=== PATIENT | female | born 1990 | race Hispanic/Latino ===

== ENCOUNTER 2016-05-31 01:53 | Emergency (ER) | payer OTHER ==
[~2016-05-31] VITALS: Ht 160 cm; Wt 96.8 kg
[~2016-05-31 01:53] MED LIST: AMOXICILLIN500 MG OR; AMOXICILLIN500 MG PO; AUGMENTIN875TAB PO; BACTRIM DS1 TAB PO; CEPHALEXIN500 MG PO; CLARITIN-D1 TA4 PO; CLARITIN10 M1 PO; CORTISPORIN OTI10 ML AS; FIORICET PO; FLEXERIL OR; FLEXERIL PO; FLONASE NASAL50 MCG; IMITREX100 MG PO; LORTAB 5 OR; MACROBID100 MG OR; MECLIZINE25 MG PO; NAPROSYN500 MG PO; PRENATA3 OR; PRENATAL VITAMINS; PREVACID30 M2 PO; TOPIRAMATE50 MG PO; ULTRAM50 M1 PO; ZOFRAN ODT4 MG PO; [UNRECOGNIZED DRUG - REMARK]
[2016-05-31] MEDS ORDERED: NAPROSYN500 MG PO (02:49)
[2016-05-31 03:35] VITALS: BP 132/84
== END 2016-05-31 03:35 | disposition home or self-care (01) | DRG 558 ==
LOC: ED 01:53
DX: M77.8 Other enthesopathies, not elsewhere classified (principal)

== ENCOUNTER 2016-10-04 00:16 | Emergency (ER) | payer SELFPAY ==
[~2016-10-04] VITALS: Ht 160 cm; Wt 100.0 kg
[2016-10-04 00:57] LABS: HEMATOCRIT 42.7 % (37.0-47.0); HEMOGLOBIN 14.1 g/dl (12.0-16.0); IMMATURE GRANULOCYTES 0.3 % (0.0-1.0); MEAN CORPUSCULAR HGB 30.4 pG CALC (26.0-32.0); NEUT# 6.31 thou/uL (2.00-7.15); RED BLOOD COUNT 4.64 mill/uL (4.20-5.60); RED CELL DISTRI WIDTH 13.2 % (11.5-15.5)
[2016-10-04 00:58] LABS: URINE BILIRUBIN - DIPSTICK NEGATIVE (NEGATIVE); URINE BLOOD DIPSTICK NEGATIVE (NEGATIVE); URINE CLARITY CLEAR; URINE COLOR YELLOW; URINE GLUCOSE - DIPSTICK NEGATIVE (NEGATIVE); URINE KETONE NEGATIVE (NEGATIVE); URINE LEUK ESTERASE TRACE (NEGATIVE); URINE NITRITE - DIPSTICK NEGATIVE (Negative); URINE PROTEIN - DIPSTICK NEGATIVE (NEG-TRACE); URINE UROBILINOGEN - DIPSTICK 0.2 E.U./dL (0.2)
[2016-10-04 01:02] LABS: BARBITURATES NEGATIVE (NEGATIVE); COCAINE NEGATIVE (NEGATIVE); METHADONE NEGATIVE (NEGATIVE); OXCYCODONE NEGATIVE (NEGATIVE); TETRAHYDROCANNABIONOL NEGATIVE (NEGATIVE); TRICYLIC ANTIDEPRESSANTS NEGATIVE (NEGATIVE)
[2016-10-04 01:17] LABS: ALBUMIN 4.3 g/dL (3.2-5.0); ALKALINE PHOSPHATASE 86 u/l (38-126); ANION GAP 16 (6-22 (CALC)); BILIRUBIN, TOTAL 0.3 mg/dL (0.0-1.4); BUN 11 mg/dL (7-17); BUN/CREATININE RATIO 12 (12-20 (CALC)); CALCIUM 9.8 mg/dL (8.4-10.2); CARBON DIOXIDE 25 mmol/l (22-30); CHLORIDE 108 mmol/l (95-108); CREATININE 0.9 mg/dL (0.5-1.0); GFR > 60 ML/MIN (>=60 (CALC)); GFR FOR AFR.AMER. > 60 ML/MIN (>=60 (CALC)); GLUCOSE 94 mg/dL (65-105); SGOT/AST 25 u/l (14-36); SGPT/ALT 45 u/l (9-52); SODIUM 145 mmol/l (137-146); TOTAL PROTEIN 7.2 g/dL (6.3-8.2)
[2016-10-04] MEDS ORDERED: ANTIVERT PO (01:57)
[2016-10-04 02:00] VITALS: BP 105/64
== END 2016-10-04 02:12 | disposition home or self-care (01) | DRG 149 ==
LOC: ED 00:16
DX: R42 Dizziness and giddiness (principal); F17.210 Nicotine dependence, cigarettes, uncomplicated

== ENCOUNTER 2016-11-06 00:52 | Emergency (ER) | payer BC ==
[~2016-11-06] VITALS: Ht 160 cm; Wt 100.4 kg
[~2016-11-06 00:52] MED LIST changes: +ANTIVERT PO
[2016-11-06 02:11] LABS: URINE BILIRUBIN - DIPSTICK NEGATIVE (NEGATIVE); URINE BLOOD DIPSTICK NEGATIVE (NEGATIVE); URINE CLARITY CLEAR; URINE COLOR YELLOW; URINE GLUCOSE - DIPSTICK NEGATIVE (NEGATIVE); URINE KETONE NEGATIVE (NEGATIVE); URINE LEUK ESTERASE NEGATIVE (NEGATIVE); URINE NITRITE - DIPSTICK NEGATIVE (Negative); URINE PROTEIN - DIPSTICK NEGATIVE (NEG-TRACE); URINE UROBILINOGEN - DIPSTICK 0.2 E.U./dL (0.2)
[2016-11-06] MEDS ORDERED: PERCOCET 5/325M1 TAB PO (04:45)
[2016-11-06] MEDS ORDERED: ORPHENADRINE100 MG PO (04:45)
[2016-11-06 04:56] VITALS: BP 123/63
== END 2016-11-06 04:56 | disposition home or self-care (01) | DRG 552 ==
LOC: ED 00:52
PROVIDERS: Emergency Medicine
DX: M54.5 Low back pain (principal); F41.9 Anxiety disorder, unspecified; G89.29 Other chronic pain; G93.0 Cerebral cysts; F17.210 Nicotine dependence, cigarettes, uncomplicated

== ENCOUNTER 2017-02-26 23:43 | Emergency (ER) | payer BC ==
[~2017-02-26] VITALS: Ht 160 cm; Wt 104.4 kg
[~2017-02-26 23:43] MED LIST changes: +ORPHENADRINE100 MG PO; +PERCOCET 5/325M1 TAB PO
[2017-02-27 00:47] LABS: URINE BILIRUBIN - DIPSTICK NEGATIVE (NEGATIVE); URINE BLOOD DIPSTICK NEGATIVE (NEGATIVE); URINE CLARITY SL CLOUDY; URINE COLOR YELLOW; URINE GLUCOSE - DIPSTICK NEGATIVE (NEGATIVE); URINE KETONE NEGATIVE (NEGATIVE); URINE LEUK ESTERASE NEGATIVE (NEGATIVE); URINE NITRITE - DIPSTICK NEGATIVE (Negative); URINE PROTEIN - DIPSTICK NEGATIVE (NEG-TRACE); URINE UROBILINOGEN - DIPSTICK 0.2 E.U./dL (0.2)
[2017-02-27] MEDS ORDERED: FLEXERIL PO (01:38)
[2017-02-27] MEDS ORDERED: ULTRAM50 M1 PO (01:38)
[2017-02-27 02:01] VITALS: BP 130/87
== END 2017-02-27 02:02 | disposition home or self-care (01) | DRG 563 ==
LOC: ED 23:43
PROVIDERS: Emergency Medicine
DX: S39.012A Strain of muscle, fascia and tendon of lower back, initial encounter (principal); M47.816 Spondylosis without myelopathy or radiculopathy, lumbar region; F17.210 Nicotine dependence, cigarettes, uncomplicated; X58.XXXA Exposure to other specified factors, initial encounter

== ENCOUNTER 2020-02-16 18:30 | Emergency (ER) | payer OTHER ==
[~2020-02-16] VITALS: Ht 160 cm; Wt 105.0 kg
[2020-02-16] MEDS ORDERED: OFLOXACIN0.3 % OS (18:49)
[2020-02-16 18:50] VITALS: BP 128/70
== END 2020-02-16 18:54 | disposition home or self-care (01) | DRG 125 ==
LOC: ED 18:30
DX: S05.02XA Injury of conjunctiva and corneal abrasion without foreign body, left eye, initial encounter (principal); F17.200 Nicotine dependence, unspecified, uncomplicated; X58.XXXA Exposure to other specified factors, initial encounter

== ENCOUNTER 2020-03-10 17:23 | Emergency (ER) | payer OTHER ==
[~2020-03-10] VITALS: Ht 160 cm; Wt 100.0 kg
[~2020-03-10 17:23] MED LIST changes: +OFLOXACIN0.3 % OS
[2020-03-10 18:28] LABS: URINE BILIRUBIN - DIPSTICK NEGATIVE (NEGATIVE); URINE BLOOD DIPSTICK NEGATIVE (NEGATIVE); URINE COLOR YELLOW; URINE GLUCOSE - DIPSTICK NEGATIVE (NEGATIVE); URINE KETONE NEGATIVE (NEGATIVE); URINE NITRITE - DIPSTICK NEGATIVE (Negative); URINE PROTEIN - DIPSTICK NEGATIVE (NEG-TRACE); URINE UROBILINOGEN - DIPSTICK 0.2 E.U./dL (0.2)
[2020-03-10 18:30] LABS: URINE LEUK ESTERASE SMALL (NEGATIVE)
[2020-03-10 18:32] LABS: URINE BACTERIA FEW hpf; URINE EPITHELIAL CELLS FEW EPI/hpf (0-FEW)
[2020-03-10] MEDS ORDERED: FIORICET PO (19:31)
[2020-03-10 19:53] VITALS: BP 119/58
[2020-03-10] MEDS ORDERED: KEFLEX500 M1 PO (21:21)
== END 2020-03-10 20:06 | disposition home or self-care (01) | DRG 103 ==
LOC: ED 17:23
PROVIDERS: Emergency Medicine
DX: G43.909 Migraine, unspecified, not intractable, without status migrainosus (principal); N39.0 Urinary tract infection, site not specified; G93.0 Cerebral cysts

== ENCOUNTER 2021-06-14 13:37 | Emergency (ER) | payer OTHER ==
[~2021-06-14] VITALS: Ht 160 cm; Wt 95.0 kg
[~2021-06-14 13:37] MED LIST changes: +KEFLEX500 M1 PO
[2021-06-14 13:57] VITALS: BP 143/93
[2021-06-14 14:26] LABS: HEMATOCRIT 39.7 % (37.0-47.0); HEMOGLOBIN 12.8 g/dl (12.0-16.0); IMMATURE GRANULOCYTES 0.3 % (0.0-5.0); MEAN CORPUSCULAR HGB 27.5 pG CALC (26.0-32.0); MEAN CORPUSCULAR HGB CONC 32.2 g/dL CAL (32.0-36.0); NEUT# 5.11 thou/uL (2.00-7.15); RED BLOOD COUNT 4.65 mill/uL (4.20-5.60); RED CELL DISTRI WIDTH 16.4 % (11.5-15.5)
[2021-06-14 14:27] LABS: MEAN CELL VOLUME 85.4 fL CALC (80.0-100.0)
[2021-06-14 14:43] LABS: ALBUMIN 4.1 g/dL (3.2-5.0); ALKALINE PHOSPHATASE 99 u/l (38-126); ANION GAP 11 (6-22 (CALC)); BUN 11 mg/dL (7-17); BUN/CREATININE RATIO 15 (12-20 (CALC)); CARBON DIOXIDE 25 mmol/l (22-30); CHLORIDE 108 mmol/l (95-108); CREATININE 0.8 mg/dL (0.5-1.0); GFR > 60 ML/MIN (>=60 (CALC)); GFR FOR AFR.AMER. > 60 ML/MIN (>=60 (CALC)); POTASSIUM 3.4 mmol/l (3.5-5.1); SGOT/AST 28 u/l (14-36); SODIUM 141 mmol/l (137-146); TOTAL PROTEIN 7.4 g/dL (6.3-8.2)
[2021-06-14 14:48] LABS: BILIRUBIN, TOTAL 0.1 mg/dL (0.0-1.4)
[2021-06-14] MEDS ORDERED: HYDROCO/APAP1 TA9 PO (15:51)
== END 2021-06-14 16:05 | disposition home or self-care (01) | DRG 563 ==
LOC: ED 13:37
DX: S43.401A Unspecified sprain of right shoulder joint, initial encounter (principal); R42 Dizziness and giddiness; W19.XXXA Unspecified fall, initial encounter; Y92.009 Unspecified place in unspecified non-institutional (private) residence as the place of occurrence of the external cause